=== PATIENT | male | born 1965 | race Caucasian/White ===

== ENCOUNTER 2024-11-27 16:00 | Emergency (ER) | payer MEDICARE, SELFPAY ==
[2024-11-27 16:03] VITALS: BP 115/73
[2024-11-27 16:20] LABS: Hematocrit 38.9 % (39.0-52.0); Hemoglobin 13.2 g/dL (13.0-18.0); Mean Corp Hgb Conc. 33.9 g/dL (33.0-37.0); Mean Corpuscular Volume 89.8 fL (80.0-94.0); Nucleated Red Blood Cells % 0 % (-); Platelet Count 272 10^3/uL (130-400); Red Cell Dist. Width 12.8 % (11.5-14.5)
[2024-11-27 16:32] LABS: ALT (SGPT) 18 U/L (0-50); AST (SGOT) 21 U/L (17-59); Albumin 4.1 g/dl (3.5-5.0); Alkaline Phosphatase 80 U/L (38-126); Blood Urea Nitrogen 20 mg/dl (9-20); Calcium 9.5 mg/dl (8.4-10.2); Carbon Dioxide 30 mmol/L (22-30); Chloride 104 mmol/L (98-107); Glucose 112 mg/dl (70-99); Lipase 161 U/L (23-300); Potassium 4.9 mmol/L (3.5-5.1); Sodium 139 mmol/L (135-145); Total Protein 7.3 g/dl (6.3-8.2); eGFR 48.72
--- NOTE | 2024-11-27 18:46 | ED.GENMED ---
History of Present Illness
General
Chief Complaint: Fatigue
Source: patient and spouse
Exam Limitations: none
Time Seen by Provider: 11/27/24 18:25
History of Present Illness
History of Present Illness:
59yoM with a history of bladder cancer s/p cystectomy in 2022, bipolar disorder, Palacios's esophagus presenting with his significant other for evaluation of fatigue. Patient has been feeling increasingly fatigued over the past month or so. He
feels like he is constantly sleeping and does not feel rested. He also has multiple other complaints including shortness of breath, recurrent headaches which wake him up at times, and abdominal bloating. He called his PCP today and was told to go
to the ED for evaluation. He also has had some nasal congestion since yesterday and some diarrhea today. He denies any fevers, chest pain, weight loss.
Past History
Past History
ED Past Medical History: Asthma, GERD, HTN, Hypercholesterolemia, Psychiatric (bipolar disorder, suicide attempt, Depression. Schizophrenia) and Other (Kidney stone, UTI)
ED Past Surgical History: Urological (For kidney stones)
Social History
Tobacco: Non-smoker
Alcohol: None
Personal:
Living: with family
Employment: Disabled
Family History
Family History: Other (Noncontributory)
Phy Exam
General Physical Exam
General Presentation: well appearing and no apparent distress
General Skin: warm, dry and pale
General Habitus: normal
General Mental: alert
ENT Exam
ENT Exam: normocephalic
Cardiovascular Exam
Cardiovascular Exam: regular rate/rhythm and no edema
Pulmonary Exam
Pulmonary Exam: lungs clear, no respiratory distress, no rales, no crackles, no rhonchi and no wheezing
Gastrointestinal Exam
Gastrointestinal Exam: soft, non distended and other (Mild generalized tenderness. Abdomen soft, non-distended. Urostomy noted.)
Neurological Exam
Neurological Exam: alert
Shanti Coma Scale
Eye Opening: Spontaneous
Verbal Response: Oriented
Motor Response: Obeys Commands
GCS Total Score: 15
Skin Exam
Skin Exam: normal color and warm/dry
Psychiatric Exam
Psychiatric Exam: normal mood/affect
Course
Orders/Labs/Results
Orders:
Orders
11/27/24 16:12
Complete Blood Count/With Diff Urgent
Comprehensive Metabolic Panel Urgent
Lipase Urgent
TSH Reflex To Free T4 Urgent
Comment: ADD ON
11/27/24 18:43
Add On- LAB Urgent
Tests Added?: TSH with reflex to T4
Electrocardiogram (*1) Urgent
Reason for Study: Shortness of Breath
EKG- Treatment ONCE
0.9% Sodium Chloride 500 ml [Nss] 500 ml IV BOLUS
11/27/24 18:44
CT Abd/pelvis W Iv Cont Urgent
Comment:
Reason For Exam: generalized abd discomfort, bloating
CT Head W/o Iv Contrast Urgent
Comment:
Reason For Exam: recurrent headaches
CR Chest - 2 Views Urgent
Comment:
Reason For Exam: SOB
11/27/24 19:06
Electrocardiogram (*1) Urgent
Reason for Study: Shortness of Breath
11/27/24 19:15
COVID-19 Antigen Urgent
Source: Nasal Swab
Troponin I Urgent
Abnormal Lab Results
11/27/24
16:12
RBC 4.33 L 10^6/uL
(4.70-6.10)
Hct 38.9 L %
(39.0-52.0)
Absolute Monos (auto) 0.8 H 10^3/uL
(0.1-0.6)
Absolute Eos (auto) 1.3 H 10^3/uL
(0-0.7)
Neutrophils % 41.7 L %
(42.2-75.2)
Monocytes % 9.8 H %
(1.7-9.3)
Eosinophils % 16.1 H %
(0-6)
Creatinine 1.6 H mg/dL
(0.7-1.3)
Glucose 112 H mg/dl
(70-99)
11/27/24 16:12
11/27/24 16:12
Vital Signs
Initial and Last Documented VS:
Initial Vital Signs
Temp Pulse Resp BP Pulse Ox
97.3 F 62 18 115/73 97
11/27/24 16:03 11/27/24 16:03 11/27/24 16:03 11/27/24 16:03 11/27/24 16:03
Last Documented Vital Signs
Temp Pulse Resp BP Pulse Ox
98 F 70 18 146/86 98
11/27/24 22:59 11/27/24 22:59 11/27/24 22:59 11/27/24 22:59 11/27/24 22:59
MDM/Problems Addressed
Differential Diagnosis Includes:
59yoM here with fatigue x 1 month. Also c/o diarrhea, congestion, SOB, ARAYA. VSS. He is well-appearing in no distress. He does have mild generalized abdominal tenderness on exam without signs of peritonitis. Differential diagnosis includes but is
not limited to: Anemia, thyroid dysfunction, malignancy, viral illness, depression
Initial ED plan: Basic lab work obtained in triage which is overall unremarkable. Creatinine 1.6 which is near baseline. Will add on TSH, troponin/EKG, viral testing, chest x-ray, CT head, and CT abdomen. IV fluid bolus.
*Pulse Oximetry
SaO2: 97
Oxygen Mode of Delivery: Room air
Patient hypoxic: no (97%)
*EKG
Interpreted by ED Provider?: Yes
EKG Intrepretation Date: 11/27/24
Heart Rate: 57
Rate: bradycardiac
Rhythm: sinus
[place]: normal axis
Interval: normal interval
QRS Pattern: normal QRS
Ischemia: no ischemia
*Critical Care Note
Total Time (30-74mins, 75-104mins- exclusive of procedures): Not Applicable
Update Note
Update Note:
Remainder of labs unremarkable including normal TSH. EKG shows sinus bradycardia without ischemic changes and troponin normal. CT abdomen shows acute uncomplicated diverticulitis. Remainder of imaging negative for acute findings. No indication
for hospitalization. Symptoms are likely multifactorial due to diverticulitis, depression, and possible underlying sleep apnea. He was started on a course of Cipro/Flagyl (PCN allergy). He was advised to follow-up closely with his PCP and ED
return precautions reviewed. Patient in agreement with plan and was discharged in stable condition.
ED Attending Note
-
Portions of this chart may have been created with voice recognition software.� Occasional wrong word or��sound alike� substitutions may have occurred due to the inherent limitations of voice recognition software.
Discharge Plan
Departure
Patient Disposition: Home (Routine Discharge)
Date of Disposition: 11/27/24
Time of Disposition: 21:51
Patient with high blood pressure during this ER visit?: No
Discharge Problem:
Fatigue, Acute diverticulitis
Instructions: Fatigue (DC), Diverticulitis
Prescriptions:
New
ciprofloxacin HCl [Cipro] 500 mg tablet
500 mg PO BID 7 Days Qty: 14 0RF
metronidazole 500 mg tablet
500 mg PO Q8H 7 Days Qty: 21 0RF
No Action
metoprolol succinate 25 MG tablet extended release 24 hr
25 mg PO DAILY
albuterol sulfate 1 PUFF HFA aerosol inhaler
1 puff inhalation R Q4HPRN PRN (Reason: ASTHMA)
oxcarbazepine 600 mg Tablet
600 mg PO BID
fluoxetine 40 mg Capsule
40 mg PO DAILY
multivitamin Tablet
1 tab PO MOTH
lamotrigine 25 mg Tablet
25 mg PO TID
paliperidone 6 mg Tablet Extended Release 24 Hr
6 mg PO HS
Patient Comments:
02/15/23-patient spouse bring this in
Referrals:
Maryanne Currie PA-C [Family Provider, Internal Medicine]
Activity Restrictions/Additional Instructions:
Take antibiotics as prescribed. Eat a clear liquid diet until symptoms improve.
Please call your family doctor tomorrow to schedule a follow-up appointment. Return to the ER with any new or worsening symptoms including fevers or severe pain.
Interventions
Interventions:
*Risk Screen - Suicide Last Done: 11/27/24 16:06
*General Assessment Last Done: 11/27/24 16:06
*Neglect/Abuse Screening Last Done: 11/27/24 22:59
*ED- Fall Risk Assessment Last Done: 11/27/24 22:59
*ED COVID-19 Vaccine History Last Done: 11/27/24 16:06
*Nursing Disposition Last Done: 11/27/24 22:59
Discharge Date and Time
Discharge Date/Time: 11/27/24 23:02
Print Language: SLOV[place]
[2024-11-27] MEDS: NSS 500 IV (19:25)
[2024-11-27 19:32] VITALS: BP 127/71
[2024-11-27 19:35] VITALS: BMI 30.7
[2024-11-27 19:59] LABS: COVID-19 Antigen Negative (Negative)
[2024-11-27 20:00] VITALS: BP 128/81
[2024-11-27 20:10] LABS: Troponin I 0.013 ng/ml
[2024-11-27 22:51] VITALS: BP 146/86
[2024-11-27 22:59] VITALS: BP 146/86
== END 2024-11-27 23:02 | disposition home or self-care (01) ==
LOC: EMR 16:00
PROVIDERS: Emergency Medicine; Physician Assistant; EMERGENCY PHYSICIAN Student in an Organized Health Care Education/Training Program; FAMILY PHYSICIAN Physician Assistant Medical
DX: K57.32 Diverticulitis of large intestine without perforation or abscess without bleeding (principal); I10 Essential (primary) hypertension; E78.00 Pure hypercholesterolemia, unspecified; J45.909 Unspecified asthma, uncomplicated; K22.70 Barrett's esophagus without dysplasia; F31.9 Bipolar disorder, unspecified; F20.9 Schizophrenia, unspecified; Z91.51 Personal history of suicidal behavior; Z85.51 Personal history of malignant neoplasm of bladder
CPT/HCPCS: 99284; 96360; 70450; 71046; 74177; 80053; 83690; 84443; 84484; 85025; 87811; 93005; Q9967